=== PATIENT | female | born 1950 | race Caucasian/White ===

== ENCOUNTER → 2017-11-18 | Outpatient (CLI) | payer MEDICARE ==
--- NOTE | 2017-11-18 13:13 | MM ---
Reason for exam: screening (asymptomatic). Last mammogram was performed 2 years and 2 months ago. History: Patient is postmenopausal and history of breast cancer. Family history of breast cancer in mother. Excisional biopsy of the right breast. Radiation therapy. Physical Findings: A clinical breast exam by your physician is recommended on an annual basis and results should be correlated with mammographic findings. MG 3D Screening Mammo W/Cad Bilateral CC and MLO view(s) were taken. XCCL view(s) were taken of the right breast. Prior study comparison: September 21, 2015, mammogram. April 26, 2014, mammogram. There are scattered fibroglandular densities. No suspicious abnormality. Right post therapy change. No significant changes when compared with prior studies. ASSESSMENT: Benign, BI-RAD 2 RECOMMENDATION: Routine screening mammogram of both breasts.
== END | disposition home or self-care (01) ==
LOC: RADMAMWWP 07:02
PROVIDERS: ATTEND Family Medicine
DX: Z12.31 Encounter for screening mammogram for malignant neoplasm of breast (principal)
CPT/HCPCS: 77063; 77067

== ENCOUNTER → 2020-09-14 | Outpatient (CLI) | payer MEDICARE ==
--- NOTE | 2020-09-17 10:27 | MM ---
Reason for exam: screening (asymptomatic). Last mammogram was performed 2 years and 10 months ago. History: Patient is postmenopausal and history of breast cancer. Family history of breast cancer in mother. Excisional biopsy of the right breast. Radiation therapy. Physical Findings: A clinical breast exam by your physician is recommended on an annual basis and results should be correlated with mammographic findings. MG Screening Mammo w CAD Bilateral CC and MLO view(s) were taken. Prior study comparison: November 18, 2017, bilateral MG 3d screening mammo w/cad. September 21, 2015, mammogram. There are scattered fibroglandular densities. Finding: Architectural distortion in the posterior position of the right breast consistent with known treatment changes. There is no discrete abnormality. New 19mm round circumscribed lesion anterior right inner quadrant 9cm from the nipple. ASSESSMENT: Incomplete: need additional imaging evaluation, BI-RAD 0 RECOMMENDATION: Ultrasound of the right breast. [facility] will attempt to contact patient to return for ultrasound.
== END | disposition home or self-care (01) ==
LOC: RADMAMWWP 12:28
PROVIDERS: ATTEND Family Medicine
DX: Z12.31 Encounter for screening mammogram for malignant neoplasm of breast (principal); Z78.0 Asymptomatic menopausal state; Z85.3 Personal history of malignant neoplasm of breast; Z80.3 Family history of malignant neoplasm of breast
CPT/HCPCS: 77067

== ENCOUNTER → 2020-09-18 | Outpatient (CLI) | payer MEDICARE ==
--- NOTE | 2020-09-18 13:29 | USB ---
Reason for exam: additional evaluation requested from abnormal screening. History: Patient is postmenopausal and has history of breast cancer at age 62. Family history of breast cancer in mother. Excisional biopsy of the right breast. Radiation therapy. Physical Findings: Nurse Summary: 1.5cm firm, fixed lump right breast 1 o'clock (nurse mj). US Breast Workup RT Right complete breast ultrasound includes all four quadrants, the retroareolar region and axilla. Finding demonstrates a 17 x 12 x 17mm oval, solid lesion at 2 o'clock BB, mixed etiology. New mass on mammogram. These results were verbally communicated with the patient and result sheet given to the patient on 09/18/20. ASSESSMENT: Suspicious, BI-RAD 4 RECOMMENDATION: Ultrasound core biopsy of the right breast. (2 o'clock) Called Dr. Ordoñez's office with mammographic findings. Biopsy scheduled for 10/04/20 at 1:00. PRELIMINARY REPORT CALLED AND FAXED TO DR. ORDOÑEZ ON 09/18/20.
== END | disposition home or self-care (01) ==
LOC: RADUSWWP 09:29
PROVIDERS: ATTEND Family Medicine
DX: N63.10 Unspecified lump in the right breast, unspecified quadrant (principal); Z85.3 Personal history of malignant neoplasm of breast; Z78.0 Asymptomatic menopausal state; Z80.3 Family history of malignant neoplasm of breast

== ENCOUNTER → 2020-10-04 | Day surgery (SDC) | payer MEDICARE ==
[2020-10-04 12:27] VITALS: TEMP 98.1
[2020-10-04 13:40] VITALS: BP 136/71; PULSE 80; RESP 16
--- NOTE | 2020-10-04 14:48 | USB ---
EXAMINATION TYPE: US biopsy breast VAD RT DATE OF EXAM: 10/04/2020 CLINICAL HISTORY: R92.8 Abnormal mammogram. TECHNIQUE: Ultrasound guided core biopsy of right breast. COMPARISON: NONE FINDINGS: The procedure of ultrasound guided core biopsy was explained to the patient. Benefits, alt ernatives, and risks were discussed. An informed consent was then obtained. The patient was placed in supine positioning for imaging and for the procedure. The overlying skin w as prepped and draped in usual sterile fashion. Lidocaine buffered with bicarbonate was used as anes thetic into the skin and subcutaneous tissue up to area of concern in the right breast 2:00 lesion. A evangelina was made with surgical scalpel. Under ultrasound guidance, a 12-gauge vacuum assisted biopsy gun device was used to obtain 4 core alea ples. Following this, a biopsy clip was left in lesion. The patient tolerated the procedure well without any immediate complication. The patient was kept in the radiology department for short stay after the procedure and then discharged home in stable condi tion. IMPRESSION: Successful, uncomplicated ultrasound guided core biopsy of area of concern in the right b reast, full pathology results to follow.
--- NOTE | 2020-10-05 08:40 | MM ---
Reason for exam: additional evaluation requested from abnormal screening. Last mammogram was performed 1 month ago. History: Patient is postmenopausal and has history of breast cancer at age 62. Family history of breast cancer in mother. Excisional biopsy of the right breast. Radiation therapy. MG Diagnostic Mammo RT Wo CAD CC and MLO view(s) were taken of the right breast. Prior study comparison: September 14, 2020, bilateral MG screening mammo w CAD. November 18, 2017, bilateral MG 3d screening mammo w/cad. ASSESSMENT: Post procedure mammogram for marker placement RECOMMENDATION: Ultrasound of the right breast in 6 months. PENDING PATHOLOGY RESULTS.
== END ==
LOC: RADUSWWP 11:40
PROVIDERS: ATTEND Family Medicine
DX: N64.1 Fat necrosis of breast (principal); Z92.3 Personal history of irradiation; Z80.3 Family history of malignant neoplasm of breast; Z78.0 Asymptomatic menopausal state; Z85.3 Personal history of malignant neoplasm of breast
CPT/HCPCS: 88305; 77065; 19083; A4648; J2001

== ENCOUNTER → 2020-10-22 | Outpatient (CLI) | payer MEDICARE ==
[~2020-10-22] MED LIST: DOBUTamine DRIP for NUC MED 500 MG in DEXTROSE/WATER 1 250ML.BAG IV PRN
== END | disposition home or self-care (01) ==
LOC: RADNMMAIN 09:41
PROVIDERS: ATTEND Family Medicine
DX: Z53.9 Procedure and treatment not carried out, unspecified reason (principal)

== ENCOUNTER 2022-12-31 16:22 | Emergency (ER) | payer MEDICARE ==
[2022-12-31] MEDS ORDERED: NITROGLYCERIN OINT 1 INCH/GM PACKET TOPICAL STA (16:53)
[2022-12-31] MEDS ORDERED: ASPIRIN 81 MG PO STA (16:53)
--- NOTE | 2022-12-31 16:58 | ED ---
General Adult HPI - General Chief complaint: Chest Pain Stated complaint: Chest Pain,Sob Time Seen by Provider: 12/31/22 16:35 Source: patient, RN notes reviewed, old records reviewed Mode of arrival: ambulatory Limitations: no limitations - History of Present Illness Initial comments: This is a 72-year-old female presents emergency Department complaining of chest pain. Patient states that it's been ongoing for about 3 days. Patient states it comes and goes and lasts about 10 minutes and when it occurs she often gets pain and an achy sensation in her left arm. Patient states that sensation stays longer than the chest pain typically. Patient states she also has some shortness of breath associated with it. Patient denies any diaphoretic episodes or nausea. Patient states she has no diabetes high blood pressure high cholesterol. She does have a strong family history of heart disease her brother has had a heart attack. Patient denies any smoking history. Patient currently is not experiencing any chest pain. Patient is indicated to me early that she is unable to stay overnight because she has a son she needs to take care of at home but she is willing to do the workup. - Related Data Home Medications Medication Instructions Recorded Confirmed Naproxen Sodium [Aleve] 220 mg PO DAILY PRN 09/21/20 12/31/22 Omeprazole 20 mg PO DAILY 09/21/20 12/31/22 Sertraline [Zoloft] 50 mg PO DAILY 12/31/22 12/31/22 Allergies Allergy/AdvReac Type Severity Reaction Status Date / Time No Known Allergies Allergy Verified 12/31/22 17:46 Review of Systems ROS Statement: Those systems with pertinent positive or pertinent negative responses have been documented in the HPI. ROS Other: All systems not noted in ROS Statement are negative. Past Medical History Past Medical History: Osteoarthritis (OA) History of Any Multi-Drug Resistant Organisms: None Reported Past Surgical History: Breast Surgery Additional Past Surgical History / Comment(s): Right breast cancer,radiation age 62 Past Anesthesia/Blood Transfusion Reactions: No Reported Reaction Past Psychological History: No Psychological Hx Reported Smoking Status: Never smoker Past Alcohol Use History: Occasional Past Drug Use History: None Reported General Exam - General Exam Comments Initial Comments: GENERAL: Patient is well-developed and well-nourished. Patient is nontoxic and well- hydrated and is in no acute distress. ENT: Neck is soft and supple. No significant lymphadenopathy is noted. Oropharynx is clear. Moist mucous membranes. Neck has full range of motion without eliciting any pain. EYES: The sclera were anicteric and conjunctiva were pink and moist. Extraocular movements were intact and pupils were equal round and reactive to light. Eyelids were unremarkable. PULMONARY: Unlabored respirations. Good breath sounds bilaterally. No audible rales rhonchi or wheezing was noted. CARDIOVASCULAR: There is a regular rate and rhythm without any murmurs gallops or rubs. ABDOMEN: Soft and nontender with normal bowel sounds. SKIN: Skin is clear with no lesions or rashes and otherwise unremarkable. NEUROLOGIC: Patient is alert and oriented x3. Cranial nerves II through XII are grossly intact. Motor and sensory are also intact. Normal speech, volume and content. Symmetrical smile. MUSCULOSKELETAL: Normal extremities with adequate strength and full range of motion. LYMPHATICS: No significant lymphadenopathy is noted PSYCHIATRIC: Normal psychiatric evaluation. Limitations: no limitations Course Vital Signs 12/31/22 12/31/22 16:23 17:11 Temperature 98.8 F Pulse Rate 82 Pulse Rate [ 72 Geodetic Technician ] Respiratory 24 Rate Blood Pressure 132/66 O2 Sat by Pulse 97 Oximetry Medical Decision Making - Medical Decision Making EKG was interpreted by myself shows a sinus rhythm at 79 bpm GA interval is on a 36 QRS 91 Q-T intervals 389 QTC is 424. Patient's EKG shows no ST segment Was pt. sent in by a medical professional or institution (RY Mayen, WATER RESOURCE ENGINEERING SPECIALIST, urgent care, hospital, or care home...) When possible be specific @ -Sent in for evaluation by the primary medical care doctor Did you speak to anyone other than the patient for history (EMS, parent, family, police, friend...)? What history was obtained from this source @ -[No] Did you review nursing and triage notes (agree or disagree)? Why? @ -[I reviewed and agree with nursing and triage notes] Were old charts reviewed (outside hosp., previous admission, EMS record, old EKG, old radiological studies, urgent care reports/EKG's, care home records)? Report findings @ -I reviewed old charts no labral tenderness patient Differential Diagnosis (chest pain, altered mental status, abdominal pain women, abdominal pain men, vaginal bleeding, weakness, fever, dyspnea, syncope, headach e, dizziness, GI bleed, back pain, seizure, CVA, palpatations, mental health, musculoskeletal)? @ -Differential Chest Pain: Stable Angina, Unstable Angina, STEMI, NSTEMI Aortic Dissection, Pneumothorax, Musculoskeletal, Esophageal Spasm GERD, Cholecystitis, Pancreatitis, Zoster, this is not meant to be an all-inclusive list. EKG interpreted by me (3pts min.). @ -[As above] X-rays interpreted by me (1pt min.). @ -Chest x-ray shows no acute abnormality CT interpreted by me (1pt min.). @ -[None done] U/S interpreted by me (1pt. min.). @ -[None done] What testing was considered but not performed or refused? (CT, X-rays, U/S, labs)? Why? @ -[None] What meds were considered but not given or refused? Why? @ -[None] Did you discuss the management of the patient with other professionals (professionals i.e. , PA, WATER RESOURCE ENGINEERING SPECIALIST, lab, RT, psych nurse, social worker masters, travel manager, teacher, air antisubmarine officer, nurse outreach case manager)? Give summary @ -[No] Was smoking cessation discussed for >3mins.? @ -[No] Was critical care preformed (if so, how long)? @ -[No] Were there social determinants of health that impacted care today? How? (Homelessness, low income, unemployed, alcoholism, drug addiction, transportation, low edu. Level, literacy, decrease access to med. care, senior living, rehab)? @ -[No] Was there de-escalation of care discussed even if they declined (Discuss DNR or withdrawal of care, Hospice)? DNR status @ -[No] What co-morbidities impacted this encounter? (DM, HTN, Smoking, COPD, CAD, Cancer, CVA, ARF, Chemo, Hep., AIDS, mental health diagnosis, sleep apnea, morbid obesity)? @ -[None] Was patient admitted / discharged? Hospital course, mention meds given and route, prescriptions, significant lab abnormalities, going to OR and other pertinent info. @ -Lab work came back within normal limits chest x-ray was normal. Went back in and spoke with the patient I told her I recommended to stay but she stated she had a dull child was ill she could not stay so she wanted to be discharged home to follow-up the primary medical care doctor. Undiagnosed new problem with uncertain prognosis? @ -[No] Drug Therapy requiring intensive monitoring for toxicity (Heparin, Nitro, Insulin, Cardizem)? @ -[No] Were any procedures done? @ -[No] Diagnosis/symptom? @ -Chest pain Acute, or Chronic, or Acute on Chronic? @ -Acute Uncomplicated (without systemic symptoms) or Complicated (systemic symptoms)? @ -Complicated Side effects of treatment? @ -[No] Exacerbation, Progression, or Severe Exacerbation? @ -[No] Poses a threat to life or bodily function? How? (Chest pain, [place], MO, pneumonia, PE, COPD, DKA, ARF, appy, cholecystitis, CVA, Diverticulitis, Homicidal, Suicidal, threat to staff... and all critical care pts) @ -Yes this could lead to an MO which can lead to - Lab Data Result diagrams: 12/31/22 17:19 12/31/22 17:19 Lab Results 12/31/22 12/31/22 12/31/22 Range/Units 17:19 17:19 17:19 WBC 8.1 (3.8-10.6) k/uL RBC 4.33 (3.80-5.40) m/uL Hgb 14.4 (11.4-16.0) gm/dL Hct 44.1 (34.0-46.0) % MCV 101.8 H (80.0-100.0) fL MCH 33.3 (25.0-35.0) pg MCHC 32.8 (31.0-37.0) g/dL RDW 12.3 (11.5-15.5) % Plt Count 349 (150-450) k/uL MPV 8.2 Neutrophils % 59 % Lymphocytes % 32 % Monocytes % 5 % Eosinophils % 2 % Basophils % 1 % Neutrophils # 4.8 (1.3-7.7) k/uL Lymphocytes # 2.6 (1.0-4.8) k/uL Monocytes # 0.4 (0-1.0) k/uL Eosinophils # 0.1 (0-0.7) k/uL Basophils # 0.0 (0-0.2) k/uL PT 9.9 (9.0-12.0) sec INR 0.9 (<1.2) APTT 20.7 L (22.0-30.0) sec Sodium 138 (137-145) mmol/L Potassium 4.3 (3.5-5.1) mmol/L Chloride 106 (98-107) mmol/L Carbon Dioxide 20 L (22-30) mmol/L Anion Gap 12 mmol/L BUN 11 (7-17) mg/dL Creatinine 0.79 (0.52-1.04) mg/dL Est GFR (CKD-EPI)AfAm 87 (>60 ml/min/1.73 sqM) Est GFR (CKD-EPI)NonAf 76 (>60 ml/min/1.73 sqM) Glucose 90 (74-99) mg/dL Calcium 8.9 (8.4-10.2) mg/dL Magnesium 2.1 (1.6-2.3) mg/dL Total Bilirubin 0.6 (0.2-1.3) mg/dL AST 36 (14-36) U/L ALT 33 (4-34) U/L Alkaline Phosphatase 65 (38-126) U/L Troponin I (0.000-0.034) ng/mL Total Protein 7.8 (6.3-8.2) g/dL Albumin 4.2 (3.5-5.0) g/dL 12/31/22 Range/Units 17:19 WBC (3.8-10.6) k/uL RBC (3.80-5.40) m/uL Hgb (11.4-16.0) gm/dL Hct (34.0-46.0) % MCV (80.0-100.0) fL MCH (25.0-35.0) pg MCHC (31.0-37.0) g/dL RDW (11.5-15.5) % Plt Count (150-450) k/uL MPV Neutrophils % % Lymphocytes % % Monocytes % % Eosinophils % % Basophils % % Neutrophils # (1.3-7.7) k/uL Lymphocytes # (1.0-4.8) k/uL Monocytes # (0-1.0) k/uL Eosinophils # (0-0.7) k/uL Basophils # (0-0.2) k/uL PT (9.0-12.0) sec INR (<1.2) APTT (22.0-30.0) sec Sodium (137-145) mmol/L Potassium (3.5-5.1) mmol/L Chloride (98-107) mmol/L Carbon Dioxide (22-30) mmol/L Anion Gap mmol/L BUN (7-17) mg/dL Creatinine (0.52-1.04) mg/dL Est GFR (CKD-EPI)AfAm (>60 ml/min/1.73 sqM) Est GFR (CKD-EPI)NonAf (>60 ml/min/1.73 sqM) Glucose (74-99) mg/dL Calcium (8.4-10.2) mg/dL Magnesium (1.6-2.3) mg/dL Total Bilirubin (0.2-1.3) mg/dL AST (14-36) U/L ALT (4-34) U/L Alkaline Phosphatase (38-126) U/L Troponin I <0.012 (0.000-0.034) ng/mL Total Protein (6.3-8.2) g/dL Albumin (3.5-5.0) g/dL Disposition Clinical Impression: Chest pain Disposition: HOME SELF-CARE Instructions (If sedation given, give patient instructions): Chest Pain (ED) Is patient prescribed a controlled substance at d/c from ED?: No Referrals: Jc Ordoñez MD [Primary Care Provider] - 1-2 days Time of Disposition: 20:00
[2022-12-31 17:18] VITALS: PULSE 72
[2022-12-31 17:54] LABS: Basophils % (A) 1 %; Eosinophils # (A) 0.1 k/uL (0-0.7); Eosinophils % (A) 2 %; HCT 44.1 % (34.0-46.0); HGB 14.4 gm/dL (11.4-16.0); Lymphocytes # (A) 2.6 k/uL (1.0-4.8); Lymphocytes % (A) 32 %; MCH 33.3 pg (25.0-35.0); MCHC 32.8 g/dL (31.0-37.0); MCV 101.8 fL (80.0-100.0); Mean Platelet Volume 8.2; Monocytes # (A) 0.4 k/uL (0-1.0); Monocytes % (A) 5 %; Neutrophils # (A) 4.8 k/uL (1.3-7.7); Neutrophils % (A) 59 %; Platelet Count 349 k/uL (150-450); RBC 4.33 m/uL (3.80-5.40); RDW 12.3 % (11.5-15.5); WBC 8.1 k/uL (3.8-10.6)
[2022-12-31 18:05] LABS: ALT 33 U/L (4-34); AST 36 U/L (14-36); African American GFR (CKD) 87 (>60 ml/min/1.73 sqM); Albumin 4.2 g/dL (3.5-5.0); Alkaline Phosphatase 65 U/L (38-126); Anion Gap 12 mmol/L; Blood Urea Nitrogen 11 mg/dL (7-17); Calcium 8.9 mg/dL (8.4-10.2); Carbon Dioxide 20 mmol/L (22-30); Chloride 106 mmol/L (98-107); Glucose 90 mg/dL (74-99); Magnesium 2.1 mg/dL (1.6-2.3); Non-African American GFR(CKD) 76 (>60 ml/min/1.73 sqM); Potassium 4.3 mmol/L (3.5-5.1); Sodium 138 mmol/L (137-145); Total Bilirubin 0.6 mg/dL (0.2-1.3); Total Protein 7.8 g/dL (6.3-8.2)
[2022-12-31 18:21] LABS: INR 0.9 (<1.2); Partial Thromboplastin Time 20.7 sec (22.0-30.0); Prothrombin Time 9.9 sec (9.0-12.0)
--- NOTE | 2022-12-31 19:17 | XR ---
EXAMINATION TYPE: XR chest 2V DATE OF EXAM: 12/31/2022 COMPARISON: None INDICATION: Midline chest pain TECHNIQUE: Frontal and lateral views of the chest are obtained. FINDINGS: The heart size is normal. The pulmonary vasculature is normal. The lungs are clear. IMPRESSION: 1. No acute pulmonary process.
[2022-12-31 20:15] VITALS: BP 142/98; RESP 18; TEMP 98.7
== END 2022-12-31 20:15 | disposition home or self-care (01) ==
LOC: EC 16:22
DX: R07.89 Other chest pain (principal); M19.90 Unspecified osteoarthritis, unspecified site
CPT/HCPCS: 36415; 71046; 80053; 83735; 84484; 85025; 85610; 85730; 93005; 99285

== ENCOUNTER → 2023-06-25 | Outpatient (CLI) | payer MEDICARE | END | disposition home or self-care (01) | LOC: RADMAMWWP 14:30 | PROVIDERS: ATTEND Family Medicine | DX: Z53.9 Procedure and treatment not carried out, unspecified reason (principal) ==

== ENCOUNTER → 2023-06-30 | Outpatient (CLI) | payer MEDICARE, OTHER ==
--- NOTE | 2023-06-30 17:46 | CA ---
Stress Echo Report Nayla Arevalo Age: 72 Gender: F : 1950 Exam Date: 06/30/2023 10:32 Exam Location: [facility] Ht (in): 60 Wt (lb): 222 Ordering Physician: Jc Ordoñez MD Referring Physician: Jc Ordoñez MD Java Systems Analyst: Sabine Olson RDCS Technologist Procedure CPT: Indication: R06.09 Other forms of dyspnea ICD-9 Codes: Rhythm: Patient History: CHEST PAIN, DIFFICULTY IN BREATHING, NUMBNESS IN FACE/NECK, FAMILY HX OF HEART DISEASE, PRIOR SMOKER Cardiac Medications: Medications in past 24 hours: Contrast: Stress Results Protocol: Alon Total dose(mL): Exercise Duration (min:sec): 3:[address] Depression (mm): Angina Score: Mayo Score: METS: 5.2 Resting HR: 97 Resting BP: 114 / 71 Peak HR: 142 Peak BP: 158 / 70 Max Predicted HR: 148 96 % Max Predicted HR Target HR: 126 Double Product: [id number] Stress Summary: BP Response: Reason for Termination: MAX EXERTION/TARGET HR Cardiac Symptoms: LEFT ARM PAIN ECG Analysis Resting ECG: Stress ECG: Arrhythmia: Echo Analysis Resting Echo: Peak Echo Analysis: MEASUREMENTS (Male/Female) Normal Values CONCLUSIONS Average exercise tolerance Normal electrocardiogram and echocardiogram in response to exercise Dr. Sathya Nvaarro MD (Electronically Signed) Final Date: 30 June 2023 17:46
== END | disposition home or self-care (01) ==
LOC: RADNMMAIN 10:07
PROVIDERS: ATTEND Family Medicine
DX: R06.09 Other forms of dyspnea (principal); R07.9 Chest pain, unspecified
CPT/HCPCS: 93351

== ENCOUNTER 2024-09-02 16:23 | Emergency (ER) | payer OTHER, MEDICARE ==
[2024-09-02 16:38] VITALS: RESP 18; TEMP 98.1
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
[2024-09-02] MEDS: ACETAMINOPHEN TAB 500 MG TAB PO STA (17:46)
[2024-09-02 17:51] VITALS: BP 155/77; PULSE 86
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
== END 2024-09-02 19:25 | disposition home or self-care (01) ==
LOC: EC 16:23
DX: R07.81 Pleurodynia (principal); V43.53XA Car driver injured in collision with pick-up truck in traffic accident, initial encounter; Y92.410 Unspecified street and highway as the place of occurrence of the external cause
CPT/HCPCS: 93005; 99285

== ENCOUNTER → 2024-10-05 | Outpatient (CLI) | payer MEDICARE ==
--- NOTE | 2024-10-06 07:32 | MM ---
Reason for Exam: Screening (asymptomatic). Last mammogram was performed 4 year(s) and 0 month(s) ago. Patient History: Menarche at age 13. First Full-Term at age 26. Postmenopausal. Breast cancer, age 62. Excisional Biopsy on the Right side. 10/04/2020, Benign Core Biopsy on the right side. Radiation Therapy. Mother had breast cancer. Prior Study Comparison: 11/18/2017 Bilateral Screening Mammogram, [facility]. 09/14/2020 Bilateral Screening Mammogram, [facility]. 10/04/2020 Right Diagnostic Mammogram, [facility]. Tissue Density: There are scattered areas of fibroglandular density. Findings: Analyzed By CAD. Persistent diminished size of the right breast. Persistent distortion with benign appearing surgical clips posteriorly in the right breast. Biopsy clip anteriorly in the right breast. Surrounding masses likely larger with lobulated borders. There is no suspicious group of microcalcifications in either breast. Overall Assessment: Incomplete: need additional imaging evaluation, BI-RAD 0 Management: Diagnostic Breast Ultrasound of the right breast. Advise ultrasound evaluation of the right breast biopsied mass due to new lobulated borders and slight enlargement. Patient should continue monthly self-breast exams. A clinical breast exam by your physician is recommended on an annual basis. This exam should not preclude additional follow-up of suspicious palpable abnormalities. Note on Evon scores and lifetime risk: 1. A Evon score greater than 3% is considered moderate risk. If this is the case, consider specialist referral to assess eligibility for a risk reducing agent. 2. If overall lifetime risk for the development of breast cancer is 20% or higher, the patient may qualify for future screening with alternating mammogram and breast MRI. [facility], , 10/06/2024 7:29 AM. Electronically signed and approved by: Victor M Hernandez M.D.
== END | disposition home or self-care (01) ==
LOC: RADMAMWWP 15:16
PROVIDERS: ATTEND Family Medicine
DX: Z12.31 Encounter for screening mammogram for malignant neoplasm of breast (principal); R92.323 Mammographic fibroglandular density, bilateral breasts; Z78.0 Asymptomatic menopausal state; Z80.3 Family history of malignant neoplasm of breast
CPT/HCPCS: 77063; 77067

== ENCOUNTER → 2024-10-11 | Outpatient (CLI) | payer MEDICARE ==
--- NOTE | 2024-10-11 12:33 | USB ---
Reason for Exam: Follow-up at short interval from prior study. Patient History: Menarche at age 13. First Full-Term at age 26. Postmenopausal. Breast cancer, age 62. Excisional Biopsy on the Right side. 10/04/2020, Benign Core Biopsy on the right side. Radiation Therapy. Mother had breast cancer. Technique: Method: Targeted. Prior Study Comparison: 09/14/2020 Bilateral Screening Mammogram, [facility]. 10/04/2020 Right Diagnostic Mammogram, [facility]. 10/05/2024 Bilateral MG 3D screening mammo w/cad, [facility]. Findings: The upper section of the breast of the left breast, the axilla of the left breast and the retroareolar of the left breast were scanned. Technique utilized:US breast workup limited RT Image; Ultrasound imaging of: Area of concern, retroareolar region and axilla. Fractionally larger area of previously biopsied lesion right breast 2:00 8 cm from the nipple measuring 1.7 x 1.3 x 2.3 cm., Previously 09/25/2020 measuring up to 1.7 cm. There may be small extensions on today's exam. No enlarged lymph nodes identified. Overall Assessment: Probably benign, BI-RAD 3 Management: Diagnostic Breast Ultrasound of the right breast in 6 months. Short-term follow-up of the breast lesion at 2:00 8 cm from nipple recommended to ensure stability given fractionally increase in size and slightly changed morphology. A clinical breast exam by your physician is recommended on an annual basis and results should be correlated with mammographic findings. This exam should not preclude additional follow-up of suspicious palpable abnormalities. Results were given to the patient verbally at the time of exam. [facility], , 10/11/2024 12:31 PM. Electronically signed and approved by: Charlie Theodore DO
== END | disposition home or self-care (01) ==
LOC: RADUSWWP 11:56
PROVIDERS: ATTEND Family Medicine
DX: R92.8 Other abnormal and inconclusive findings on diagnostic imaging of breast (principal); Z78.0 Asymptomatic menopausal state; Z85.3 Personal history of malignant neoplasm of breast; Z80.3 Family history of malignant neoplasm of breast